=== PATIENT | male | born 1950 | race Caucasian/White ===

== ENCOUNTER → 2017-01-05 | Outpatient (CLI) | payer MEDICARE, BC ==
--- NOTE | 2017-01-05 09:32 | MR ---
EXAMINATION TYPE: MR iac wo/w con DATE OF EXAM: 01/05/2017 8:02 AM COMPARISON: NONE HISTORY: 66-year-old male with headaches, Vertigo TECHNIQUE: Multiplanar, multisequence images of the brain and brainstem were acquired before and aft er administration of 20 mL IV MultiHance. Diffusion weighted imaging was performed. Additional cone d-down sequences through the internal auditory canals and posterior cranial fossa before and after IV contrast administration. FINDINGS: Diffusion weighted images demonstrate no evidence of an acute ischemic lesion in the brain. T2/FLAIR weighted sequences show mild scattered burden of bright white matter change located in the s ubcortical and deep white matter of both cerebral hemispheres numbering approximately 5-10 in total. Midline structures demonstrate normal morphology. The craniocervical junction is normal. There is mild age related cerebral cortical volume loss. The ventricles are of normal caliber. There is no evidence of an acute intracranial hemorrhage, infarct, mass, mass-effect or an extra-axia l fluid collection. There is no cerebellopontine angle mass. The internal auditory canals are symmetric. Brainstem and skull base abnormalities are not seen. Post contrast images demonstrate no evidence of pathologic enhancement in the posterior cranial heber a or the internal auditory canals. There is no abnormal enhancement of the labyrinths. Mild mucosal thickening ethmoid air cells, frontal sinuses, and maxillary sinuses. Globes are intact. IMPRESSION: 1. Mild age-related cerebral atrophy. Also, very mild scattered burden of T2 bright white matter garcia ge likely representing chronic small vessel ischemic disease. 2. No acute intracranial abnormality seen. 3. No specific abnormality on acoustic MRI. 4. Mild chronic paranasal sinus disease.
== END | disposition home or self-care (01) ==
LOC: RADMRIMAIN 07:11
PROVIDERS: ATTEND Otolaryngology
DX: G31.9 Degenerative disease of nervous system, unspecified (principal); R90.82 White matter disease, unspecified
CPT/HCPCS: 70553; A9577

== ENCOUNTER → 2019-05-28 | Outpatient (CLI) | payer MEDICARE, BC ==
[2019-05-28 13:17] LABS: African American GFR (CKD) >90 (>60 ml/min/1.73 sqM); Blood Urea Nitrogen 15 mg/dL (9-20)
--- NOTE | 2019-05-29 04:39 | CT ---
EXAMINATION TYPE: CT chest w con DATE OF EXAM: 05/28/2019 COMPARISON: Radiograph 02/22/2019 HISTORY: 68-year-old male SOB TECHNIQUE: Contiguous axial scanning of the chest after the administration of 100 mL of Isovue 300. Coronal/sagittal reconstructions performed. CT DLP: 715.80mGycm. Automatic exposure control utilized for a dose reduction. FINDINGS: Heart normal size. There is a small anterior pericardial effusion measuring 7 mm thick. The right and left main pulmonary arteries measure up to 3.0 and 2.6 cm, respectively, suggesting und erlying pulmonary hypertension. No thoracic lymphadenopathy. The ascending aorta is mildly ectatic at 3.6 cm. Bovine configuration to the aortic arch. There is strandy atelectasis or scarring in the lower lungs without consolidation or pleural effusion . Small hiatal hernia. Lap band device is in place. Tiny hilar splenule. Bones: Partially visualized ACDF hardware. Changes of dish versus ankylosing spondylitis with bridgin g syndesmophytes. IMPRESSION: 1. Strandy atelectasis or scarring in the lower lungs. No acute pulmonary process. 2. A small, 7 mm thick, anterior pericardial effusion. 3. Findings suggest underlying pulmonary arterial hypertension. Clinically correlate. 4. Small hiatal hernia with lap band in place. 5. DISH versus ankylosing spondylitis. Clinically correlate.
== END | disposition home or self-care (01) ==
LOC: RADCTMAIN 12:36
PROVIDERS: ATTEND Internal Medicine Critical Care Medicine
DX: I31.3 Pericardial effusion (noninflammatory) (principal); K44.9 Diaphragmatic hernia without obstruction or gangrene; R06.09 Other forms of dyspnea; Z88.5 Allergy status to narcotic agent
CPT/HCPCS: 82565; 84520; 71260; 36415; Q9967